=== PATIENT | female | born 1980 | race Two or more races ===

== ENCOUNTER 2017-10-13 12:45 | Emergency (ER) | payer BC ==
[2017-10-13 14:06] VITALS: BP 134/79; PULSE 78; TEMP 98.4; BMI 32.3
--- NOTE | 2017-10-13 14:06 | PDOC ---
Rapid Medical Evaluation Time Seen by Provider: 10/13/17 14:03 Medical Evaluation: Allergies Allergy/AdvReac Type Severity Reaction Status Date / Time No Known Allergies Allergy Verified 10/13/17 14:03 10/13/17 14:03 I have performed a brief in-person evaluation of this patient The patient presents with a chief complaint of: L ankle s/p fall yesterday, is able to bear weight Pertinent physical exam findings:swelling and ecchymosis to lateral mal of left ankle I have ordered the following:xray The patient will proceed to the ED for further evaluation.
--- NOTE | 2017-10-13 15:06 | PDOC ---
History of Present Illness - General Chief Complaint: Injury Stated Complaint: FALL/ LT SIDE PAIN Time Seen by Provider: 10/13/17 14:03 History Source: Patient, Family Exam Limitations: No Limitations - History of Present Illness Initial Comments: 10/13/17 15:01 Patient states last night stumbled and twisted her left ankle, complaints of pain swelling and bruising to the lateral aspect of left midfoot. Took a meloxicam which she has used in the past for plantar fasciitis with minimal resolved. Denies numbness or tingling to toes, no other injury. Severity: reports: mild, moderate Pain Location: reports: lower extremity Method of Injury: Yes: fall (inversion type injury) Modifying Factors: improves with: cold therapy Associated Symptoms (Fall): denies symptoms Past History - Travel Traveled outside of the country in the last 30 days: No Close contact w/someone who was outside of country & ill: No - Past Medical History Allergies/Adverse Reactions: Allergies Allergy/AdvReac Type Severity Reaction Status Date / Time No Known Allergies Allergy Verified 10/13/17 14:03 Home Medications: Ambulatory Orders Meloxicam 15 mg PO BID #14 tablet 10/13/17 - Suicide/Smoking/Psychosocial Hx Smoking History: Never smoked Review of Systems - Review of Systems Able to Perform ROS?: Yes Is the patient limited [place] proficient: Yes Constitutional: Yes: Symptoms Reported, See HPI. No: Malaise HEENTM: No: Symptoms Reported Respiratory: No: Symptoms reported Musculoskeletal: Yes: Symptoms Reported, See HPI, Joint Swelling Integumentary: Yes: Symptoms Reported, See HPI, Bruising Neurological: No: Symptoms reported All Other Systems: Reviewed and Negative *Physical Exam - Vital Signs Last Vital Signs Temp Pulse Resp BP Pulse Ox 98.4 F 78 19 134/79 100 10/13/17 14:03 10/13/17 14:03 10/13/17 14:03 10/13/17 14:03 10/13/17 14:03 - Physical Exam General Appearance: Yes: Nourished, Appropriately Dressed, Apparent Distress HEENT: positive: RENA, Normal ENT Inspection, TMs Normal, Pharynx Normal Neck: positive: Supple. negative: Tender, Lymphadenopathy (R), Lymphadenopathy (L) Respiratory/Chest: positive: Lungs Clear, Normal Breath Sounds Gastrointestinal/Abdominal: positive: Soft. negative: Tender Musculoskeletal: positive: Normal Inspection Extremity: positive: Normal Range of Motion, Other (patient with no point tenderness to medial or lateral malleolus, has some ecchymoses noted to the lateral aspect at fifth metatarsal area however has no true point tenderness at that spot or navicular bone. Negative squeeze test. 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, Fully Oriented, Alert, Normal Mood/ Affect, Normal Response, Motor Strength 5/5 Progress Note - Progress Note Progress Note: Ankle x-ray negative for fractures dislocations, will Jake wrap provided cast shoe and recommend follow up with Orth O for foot sprain *DC/Admit/Observation/Transfer Diagnosis at time of Disposition: Left ankle sprain Qualifiers: Encounter type: initial encounter Involved ligament of ankle: unspecified ligament Qualified Code(s): S93.402A - Sprain of unspecified ligament of left ankle, initial encounter - Discharge Dispostion Disposition: HOME Condition at time of disposition: Stable Admit: No - Referrals Referrals: Raul Mederos MD [Staff Physician] - - Patient Instructions Printed Discharge Instructions: DI for Ankle Sprain Additional Instructions: Rest, ice to area on and off for 15 minutes 4-6 times a day Avoid heavy lifting or exercise until pain and swelling is resolved or until further directed Keep area highly elevated to reduce swelling Use splints/Jake wrap as directed Followup with orthopedist in one to 2 days if not improving, if significantly improved may wait one week for followup with orthopedist May use meloxicam - Post Discharge Activity Forms/Work/School Notes: Back to Work
== END 2017-10-13 15:14 | disposition home or self-care (01) ==
LOC: JERFT 12:45
DX: S93.402A Sprain of unspecified ligament of left ankle, initial encounter (principal); W01.0XXA Fall on same level from slipping, tripping and stumbling without subsequent striking against object, initial encounter; Y93.89 Activity, other specified; Y92.89 Other specified places as the place of occurrence of the external cause; Y99.8 Other external cause status
CPT/HCPCS: 73610-TC-LT; 73630-TC-LT; 99281-25